=== PATIENT | female | born 1980 | race Two or more races ===

== ENCOUNTER 2024-10-08 03:50 | Emergency (ER) | payer MEDICAID ==
[~2024-10-08] VITALS: Ht 154.9 cm; Wt 74.8 kg
--- NOTE | 2024-10-08 04:21 | ED.PDOC ---
General Chief Complaint: Abdominal Pain Comments right pelvic and flank pain. pt has a history of same due to kidney stones. this time is not as intense and is on the right side, rather than left. no hematuria Time Seen by MD: 04:01 Primary Care Provider: NONE Reviewed notes: Nurses Notes, Medications, Allergies Allergies: Coded Allergies: NO KNOWN ALLERGIES (Unverified , 09/26/14) Home Meds No Active Prescriptions or Reported Meds Information Source: Patient, Relative (Child), H Medical Record, Past Medical Record, PMD Records Mode of Arrival: Ambulatory Severity: Mild Timing: Days Duration: Since onset Onset: Spontaneous Symptoms: None History of: None Location: (R) Flank associated signs and symptoms: Flank Pain Past Medical History PAST MEDICAL HISTORY: Kidney Stones Surgical History: Denies all surgeries PSYCHIATRIC THERAPIST History: No Pertinent PSYCHIATRIC THERAPIST History Family History Family History: Unknown Social History Smoker: Non-Smoker Alcohol: Denies ETOH Use Drugs: Denies Drug Use Lives In: Home Constitutional: denies: chills, diaphoresis, fatigue, fever, malaise, sweats, weakness, others EENTM: denies: blurred vision, double vision, ear bleeding, ear discharge, ear drainage, ear pain, ear ringing, eye pain, eye redness, hearing loss, mouth pain, mouth swelling, nasal discharge, nose bleeding, nose congestion, nose pain, photophobia, tearing, throat pain, throat swelling, voice changes, others Respiratory: denies: cough, hemoptysis, orthopnea, SOB at rest, shortness of breath, SOB with excertion, stridor, wheezing, others Cardiovascular: denies: chest pain, dizzy spells, diaphoresis, Dyspnea on exertion, edema, irregular heart beat, left arm pain, lightheadedness, palpitations, PND, syncope, others Gastrointestinal: reports: abdominal pain (ruq); denies: abdomen distended, blood streaked bowels, constipated, diarrhea, dysphagia, difficulty swallowing, hematemesis, melena, nausea, poor appetite, poor fluid intake, rectal bleeding, rectal pain, vomiting, others Genitourinary: reports: flank pain; denies: abnormal vagina bleeding, burning, dyspareunia, dysuria, frequency, hematuria, incontinence, pain, , vagina discharge, urgency, others Neurological: denies: dizziness, fainting, headache, left sided numbness, left sided weakness, numbness, paresthesia, pre-existing deficit, right sided numbness, right sided weakness, seizure, speech problems, tingling, tremors, weakness, others Musculoskeletal: denies: back pain, gout, joint pain, joint swelling, muscle pain, muscle stiffness, neck pain, others Integumetry: denies: bruises, change in color, change in hair/nails, dryness, laceration, lesions, lumps, rash, wounds, others Allergic/Immunocompromised: denies: Difficulty Healing, Frequent Infections, Hives, Itching, others Hematologic/Lymphatic: denies: anemia, blood clots, easy bleeding, easy bruising, swollen glands, others Endocrine: denies: excessive hunger, excessive sweating, excessive thirst, excessive urination, flushing, intolerance to cold, intolerance to heat, unexplained weight gain, unexplained weight loss, others Psychiatric: denies: anxiety, bipolar disorder, depression, hopeless, panic disorder, schizophrenia, sleepless, suicidal, others All Other Systems: Reviewed and Negative Physical Exam General Appearance: No Apparent Distress, Normal HEENT: Normal ENT Inspection, Pharynx Normal, TMs Normal Neck: Full Range of Motion, Non-Tender, Normal, Normal Inspection Respiratory: Chest Non-Tender, Lungs Clear, No Accessory Muscle Use, No Respiratory Distress, Normal Breath Sounds Cardiovascular: No Edema, No JVD, No Murmur, No Gallop, Normal Peripheral Pulses, Regular Rate/Rhythm Breast Exam: Deferred Gastrointestinal: No Organomegaly, Non Tender, No Pulsatile Mass, Normal Bowel Sounds, Soft Genitalia: Deferred Pelvic: Deferred Rectal: Deferred Extremities: No calf tenderness, Normal capillary refill, Normal inspection, Normal range of motion, Non-tender, No pedal edema Musculoskeletal : Apperance: Normal Neurologic: Alert, medical billing associate II-XII nml as Tested, No Motor Deficits, Normal Affect, Normal Mood, No Sensory Deficits Cerebellar Function: Normal Reflexes: Normal Skin: Dry, Normal Color, Warm Lymphatic: No Adenopathy Was a procedure done? Was a procedure done?: No Differential Diagnosis Kidney stone (Female): Bowel obstruction, Cholelithiasis, Ectopic , Hepatitis, Musculoskeletal pain, Pyelonephritis, Strain, Urinary obstruction, Urolithiasis, Other Kidney stone (Male): N/A Penile/Scrotal: N/A Urinary Problem (Male): N/A Urinary Problem (Female): AAA, Appendicitis, Aortic dissection, Ectopic , Impaction, Intrauterine , Pyelonephritis, Urinary retention, Urolithiasis, UTI X-Ray, Labs, Meds, VS Vital Signs Date Time Temp Pulse Resp B/P (MAP) Pulse Ox O2 Delivery O2 Flow Rate FiO2 10/08/24 05:41 97.8 54 20 131/83 (99) 99 97.8 10/08/24 04:16 98.7 63 16 150/97 (114) 97 98.7 Lab Test 10/08/24 05:08 10/08/24 04:13 Range/Units Urine Color Colorless Yellow Urine Clarity Clear Clear Urine pH 5.0 5.0-9.0 Urine Specific [place] 1.024 1.001-1.035 Urine Protein Negative Negative Urine Ketones Negative Negative Urine Blood Trace H Negative /uL Urine Nitrite Negative Negative Urine Bilirubin Negative Negative Urine Urobilinogen Normal Negative mg/dL Urine Leukocyte Esterase Negative Negative /uL Urine RBC <1 0 - 4 /hpf Urine Microscopic WBC 1 0-5 /HPF Urine Squamous Epithelial Cells Few <5 /hpf Urine Bacteria None seen None Seen /hpf Urine Mucus Few None Seen Urine Glucose Normal Normal mg/dL White Blood Count 5.1 4.4-10.8 10^3/uL Red Blood Count 5.05 4.0-5.20 10^6/uL Hemoglobin 14.7 12.2-16.2 g/dL Hematocrit 43.4 36.0-46.0 % Mean Corpuscular Volume 85.9 80.0-100.0 fL Mean Corpuscular Hemoglobin 29.1 28.0-32.0 pg Mean Corpuscular Hemoglobin Concent 33.8 32.0-36.0 g/dL Red Cell Distribution Width 13.3 11.8-14.3 % Platelet Count 305 140-450 10^3/uL Mean Platelet Volume 6.6 L 6.9-10.8 fL Neutrophils (%) (Auto) 48.4 37.0-80.0 % Lymphocytes (%) (Auto) 45.2 10.0-50.0 % Monocytes (%) (Auto) 4.8 0.0-12.0 % Eosinophils (%) (Auto) 1.3 0.0-7.0 % Basophils (%) (Auto) 0.3 0.0-2.0 % Neutrophils # (Auto) 2.5 1.6-8.6 10 ^3/uL Lymphocytes # (Auto) 2.3 0.4-5.4 10 ^3/uL Monocytes # (Auto) 0.2 0-1.3 10 ^3/uL Eosinophils # (Auto) 0.1 0-0.8 10 ^3/uL Basophils # (Auto) 0 0-0.2 10 ^3/uL Nucleated Red Blood Cells 0.2 % Sodium Level 139 136-145 mmol/L Potassium Level 3.7 3.5-5.1 mmol/L Chloride Level 107 98-107 mmol/L Carbon Dioxide Level 26 20-31 mmol/L Anion Gap 6 5-15 Blood Urea Nitrogen 19 9-23 mg/dL Creatinine 0.98 0.550-1.02 mg/dL Glomerular Filtration Rate Calc 73 >90 mL/min BUN/Creatinine Ratio 19.4 10.0-20.0 Serum Glucose 99 74-106 mg/dL Calcium Level 9.3 8.7-10.4 mg/dL Beta HCG, Quantitative 0.7 L 1.5-4.2 mIU/mL [place] [id number] Ph: [phone] DIAGNOSTIC IMAGING Diagnostic Imaging Report : [id number] Signed PATIENT: KARL PADILLA ACCT: [id number] UNIT: [id number] : 1980 LOC: ER ROOM / BED: / AGE / SEX: 44 / F ADM STATUS: REG ER SERVICE [id number] ORDERING PHYSICIAN: CHENG PEREZ MD PROCEDURE(s): ABPL - CT AB PEL WO CON-NO ORAL OR IV REASON: right flank pain ORDER NUMBER(s): [id number], ACCESSION NUMBER(s): [id number] EXAM: CT Abdomen and Pelvis Without Intravenous Contrast CLINICAL INDICATION: right flank pain TECHNIQUE: Axial computed tomography images of the abdomen and pelvis without intravenous contrast. This CT exam was performed using one or more of the following dose reduction techniques: automated exposure control, adjustment of the mA and/or kV according to patient size, and/or use of iterative reconstruction technique. CONTRAST: RADIATION DOSE: CTDIvol = 12.97 mGy, DLP = 743.46 mGy-cm COMPARISON: None FINDINGS: LUNG BASES: Unremarkable. No mass. No consolidation. ABDOMEN: LIVER: Unremarkable. GALLBLADDER AND BILE DUCTS: Cholelithiasis. No ductal dilation. PANCREAS: Unremarkable. No ductal dilation. SPLEEN: Unremarkable. No splenomegaly. ADRENALS: Unremarkable. No mass. KIDNEYS AND URETERS: Unremarkable. No stones within either kidney. No hydronephrosis. STOMACH AND BOWEL: Unremarkable. No obstruction. No mucosal thickening. PELVIS: APPENDIX: Normal appendix. BLADDER: Unremarkable. No stones. REPRODUCTIVE: Unremarkable as visualized. ABDOMEN and PELVIS: INTRAPERITONEAL SPACE: Unremarkable. No free air. No significant fluid collection. BONES/JOINTS: No acute fracture. No dislocation. SOFT TISSUES: Umbilical hernia containing fat. VASCULATURE: Unremarkable. No abdominal aortic aneurysm. LYMPH NODES: Unremarkable. No enlarged lymph nodes. OTHER FINDINGS: . . IMPRESSION: 1. Normal appendix. 2. Umbilical hernia containing fat. 3. Cholelithiasis. 4. No obstructive uropathy. ATED BY: LAYLA GUTIERREZ MD DICTATED DATE/TIME: 10/08/24457 SIGNED BY: LAYLA GUTIERREZ MD SIGNED DATE/TIME: 10/08/24457 CC: Time of 1ST Reevaluation: 04:31 Reevaluation 1ST: Unchanged Patient Education/Counseling: Diagnosis, Treatment, Prognosis, Need For Follow Up Family Education/Counseling: Diagnosis, Treatment, Prognosis, Need For Follow Up, No Family Present Comments pt has cholelithiasis, not nephrolithiasis. she is asymptomatic now. she will follow up with her doctor. i will start her on norco as needed for pain. i explained to her the need to stay on a bland diet for now Departure 1 Departure Time of Disposition: 05:55 Impression: Primary Impression: Cholelithiases Qualified Codes: K80.20 - Calculus of gallbladder without cholecystitis without obstruction Disposition: 01 HOME / SELF CARE / HOMELESS Condition: Good e-Prescriptions Hydrocodone-Acetaminophen (Hydrocodone Bitartrate/AC 5-325 mg) 1 Tab Tab 1 TAB PO Q6HPRN PRN, #14 TAB Prov: CHENG PEREZ MD 10/08/24 Discharged With: Self, Relative Critical Care Note Critical Care Time?: No Stability Stability form required: No Heart Score Heart Score: Heart Score Response (Comments) Value History N/A 0 EKG N/A 0 Age N/A 0 Risk Factors N/A 0 Troponin N/A 0 Total 0 I personally scribed for CHENG PEREZ MD ([email or web address]) on 10/08/24 at 05:09. Electronically submitted by Chano Meeks ([email or web address]). I personally scribed for CHENG PEREZ MD ([email or web address]) on 10/08/24 at 05:18. Electronically submitted by Chano Meeks ([email or web address]). CHENG PEREZ MD Oct 08, 2024 04:21
[2024-10-08 04:41] LABS: Basophils # (auto) 0 10 ^3/uL (0-0.2); Basophils % (auto) 0.3 % (0.0-2.0); Eosinophils # (auto) 0.1 10 ^3/uL (0-0.8); Eosinophils % (auto) 1.3 % (0.0-7.0); Hematocrit 43.4 % (36.0-46.0); Hemoglobin 14.7 g/dL (12.2-16.2); Lymphocytes # (auto) 2.3 10 ^3/uL (0.4-5.4); Lymphocytes % (auto) 45.2 % (10.0-50.0); Mean Corpuscular Hemoglobin 29.1 pg (28.0-32.0); Mean Corpuscular Hgb Conc. 33.8 g/dL (32.0-36.0); Mean Corpuscular Volume 85.9 fL (80.0-100.0); Monocytes # (auto) 0.2 10 ^3/uL (0-1.3); Monocytes % (auto) 4.8 % (0.0-12.0); Neutrophils # (auto) 2.5 10 ^3/uL (1.6-8.6); Neutrophils % (auto) 48.4 % (37.0-80.0); Nucleated Red Blood Cells % 0.2 %; Platelet Count (auto) 305 10^3/uL (140-450); Red Blood Cells 5.05 10^6/uL (4.0-5.20); Red Cell Distribution Width 13.3 % (11.8-14.3); White Blood Cell 5.1 10^3/uL (4.4-10.8)
[2024-10-08 04:44] LABS: Chloride 107 mmol/L (98-107); Potassium 3.7 mmol/L (3.5-5.1); Sodium 139 mmol/L (136-145)
[2024-10-08 04:45] LABS: Anion Gap 6 (5-15); Calcium 9.3 mg/dL (8.7-10.4); Carbon Dioxide 26 mmol/L (20-31)
[2024-10-08 04:50] LABS: BUN/Creatinine Ratio 19.4 (10.0-20.0); Blood Urea Nitrogen 19 mg/dL (9-23); Glucose 99 mg/dL (74-106)
--- NOTE | 2024-10-08 05:00 | DVH ---
EXAM: CT Abdomen and Pelvis Without Intravenous Contrast CLINICAL INDICATION: right flank pain TECHNIQUE: Axial computed tomography images of the abdomen and pelvis without intravenous contrast. This CT exam was performed using one or more of the following dose reduction techniques: automated exposure control, adjustment of the mA and/or kV according to patient size, and/or use of iterative r econstruction technique. CONTRAST: RADIATION DOSE: CTDIvol = 12.97 mGy, DLP = 743.46 mGy-cm COMPARISON: None FINDINGS: LUNG BASES: Unremarkable. No mass. No consolidation. ABDOMEN: LIVER: Unremarkable. GALLBLADDER AND BILE DUCTS: Cholelithiasis. No ductal dilation. PANCREAS: Unremarkable. No ductal dilation. SPLEEN: Unremarkable. No splenomegaly. ADRENALS: Unremarkable. No mass. KIDNEYS AND URETERS: Unremarkable. No stones within either kidney. No hydronephrosis. STOMACH AND BOWEL: Unremarkable. No obstruction. No mucosal thickening. PELVIS: APPENDIX: Normal appendix. BLADDER: Unremarkable. No stones. REPRODUCTIVE: Unremarkable as visualized. ABDOMEN and PELVIS: INTRAPERITONEAL SPACE: Unremarkable. No free air. No significant fluid collection. BONES/JOINTS: No acute fracture. No dislocation. SOFT TISSUES: Umbilical hernia containing fat. VASCULATURE: Unremarkable. No abdominal aortic aneurysm. LYMPH NODES: Unremarkable. No enlarged lymph nodes. OTHER FINDINGS: . . IMPRESSION: 1. Normal appendix. 2. Umbilical hernia containing fat. 3. Cholelithiasis. 4. No obstructive uropathy.
[2024-10-08 05:39] LABS: Urine Bacteria None Seen /hpf (None Seen)
[2024-10-08 05:41] VITALS: BP 131/83; PULSE 54; RESP 20; TEMP 97.8; O2SAT 99
[2024-10-08 05:48] LABS: Urine Blood TRACE /uL (Negative); Urine Clarity Clear (Clear); Urine Color Colorless (Yellow); Urine Mucus FEW (None Seen); Urine Protein, UAD Negative (Negative); Urine Specific Gravity 1.024 (1.001-1.035); Urine Squamous Epithelial Cell FEW /hpf (<5); Urine Urobilinogen Normal (Negative); Urine WBC 1 /HPF (0-5)
[2024-10-08] MEDS: SODIUM CHLORIDE 0.9% 1,000 ML IV ONE (05:55)
[2024-10-08] MEDS: KETOROLAC TROMETH 30 MG/ML 1ML VIAL IV ONE (05:55)
[2024-10-08] MEDS ORDERED: HYDR-4902 PO (05:57)
== END 2024-10-08 06:36 | disposition home or self-care (01) ==
LOC: ER 03:50
DX: K80.20 Calculus of gallbladder without cholecystitis without obstruction (principal); R10.2 Pelvic and perineal pain; Z87.442 Personal history of urinary calculi
CPT/HCPCS: 36415; 74176; 80048; 81001; 84702; 85025; 96361; 96374; 99285; J1885; J7030

== ENCOUNTER 2024-10-08 12:05 | Inpatient (IN) | payer MEDICAID ==
[~2024-10-08] VITALS: Ht 154.9 cm; Wt 77.4 kg
[~2024-10-08 12:05] MED LIST: HYDR-4902 PO
--- NOTE | 2024-10-08 12:28 | ED.PDOC ---
GI ASSESSMENT HPI Comments 44 year old female presents to the ED with a chief complaint of abdominal pain onset 6 days. Patient states she has been experiencing RUQ pain with nausea for the past 6 days, was discharged today at 05:59 from [facility] with a diagnosis of gallstones. Patient states she went to see PCP today, was sent back to ED due to pain not improving. Patient experienced 1 episode of vomiting yesterday. PMHx HTN, gallstone, kidney stone. Denies chest pain, shortness of breath, dizziness, diarrhea, constipation, fever, chills. No other symptoms or modifying factors present at this time. Chief Complaint: Abdominal Pain Time Seen by MD: 12:10 Primary Care Provider: NONE Reviewed Notes: Medications, Allergies Allergies: Coded Allergies: NO KNOWN ALLERGIES (Unverified , 09/26/14) Home Meds Active Scripts Hydrocodone-Acetaminophen (Hydrocodone Bitartrate/AC 5-325 mg) 1 Tab Tab, 1 TAB PO Q6HPRN PRN, #14 TAB Prov:CHENG PEREZ MD 10/08/24 Information Source: Patient, Relative Mode of Arrival: Ambulatory Timing: Days Duration: Since onset Prehospital treatment: None Quality: Sharp Severity: Moderate Recent: None Recent Hx of: None Pain Location: RUQ Modifying Factors: Nothing Associated sign and symptoms: Nausea, Abdominal Pain Past Medical History PAST MEDICAL HISTORY: Gallstones, HTN, Kidney Stones Surgical History: Denies all surgeries RESEARCH STAFF MEMBER History: No Pertinent RESEARCH STAFF MEMBER History Family History Family History: Unknown Social History Smoker: Non-Smoker Alcohol: Denies ETOH Use Drugs: Denies Drug Use Lives In: Home Constitutional: denies: chills, diaphoresis, fatigue, fever, malaise, sweats, weakness, others EENTM: denies: blurred vision, double vision, ear bleeding, ear discharge, ear drainage, ear pain, ear ringing, eye pain, eye redness, hearing loss, mouth pain, mouth swelling, nasal discharge, nose bleeding, nose congestion, nose pain, photophobia, tearing, throat pain, throat swelling, voice changes, others Respiratory: denies: cough, hemoptysis, orthopnea, SOB at rest, shortness of breath, SOB with excertion, stridor, wheezing, others Cardiovascular: denies: chest pain, dizzy spells, diaphoresis, Dyspnea on exertion, edema, irregular heart beat, left arm pain, lightheadedness, palpitati ons, PND, syncope, others Gastrointestinal: reports: abdominal pain (RUQ), nausea, vomiting; denies: abdomen distended, blood streaked bowels, constipated, diarrhea, dysphagia, difficulty swallowing, hematemesis, melena, poor appetite, poor fluid intake, rectal bleeding, rectal pain, others Genitourinary: denies: abnormal vagina bleeding, burning, dyspareunia, dysuria, flank pain, frequency, hematuria, incontinence, pain, , vagina discharge, urgency, others Neurological: denies: dizziness, fainting, headache, left sided numbness, left sided weakness, numbness, paresthesia, pre-existing deficit, right sided numbness, right sided weakness, seizure, speech problems, tingling, tremors, weakness, others Musculoskeletal: denies: back pain, gout, joint pain, joint swelling, muscle pain, muscle stiffness, neck pain, others Integumetry: denies: bruises, change in color, change in hair/nails, dryness, laceration, lesions, lumps, rash, wounds, others Allergic/Immunocompromised: denies: Difficulty Healing, Frequent Infections, Hives, Itching, others Hematologic/Lymphatic: denies: anemia, blood clots, easy bleeding, easy bruising, swollen glands, others Endocrine: denies: excessive hunger, excessive sweating, excessive thirst, excessive urination, flushing, intolerance to cold, intolerance to heat, unexplained weight gain, unexplained weight loss, others Psychiatric: denies: anxiety, bipolar disorder, depression, hopeless, panic disorder, schizophrenia, sleepless, suicidal, others All Other Systems: Reviewed and Negative Physical Exam General Appearance: Moderate Distress, Normal HEENT: Normal ENT Inspection, Pharynx Normal, TMs Normal Neck: Full Range of Motion, Non-Tender, Normal, Normal Inspection Respiratory: Chest Non-Tender, Lungs Clear, No Accessory Muscle Use, No Respiratory Distress, Normal Breath Sounds Cardiovascular: No Edema, No JVD, No Murmur, No Gallop, Normal Peripheral Pulses, Regular Rate/Rhythm Breast Exam: Deferred Gastrointestinal: Diffuse, No Organomegaly, No Pulsatile Mass, Normal Bowel Sounds, Soft Genitalia: Deferred Pelvic: Deferred Rectal: Deferred Extremities: No calf tenderness, Normal capillary refill, Normal inspection, Normal range of motion, Non-tender, No pedal edema Musculoskeletal : Apperance: Normal Neurologic: Alert, flight simulator teacher II-XII nml as Tested, No Motor Deficits, Normal Affect, Normal Mood, No Sensory Deficits Cerebellar Function: Normal Reflexes: Normal Skin: Dry, Normal Color, Warm Peripheral Pulses: 3+ Radial (R), 3+ Radial (L) Lymphatic: No Adenopathy Was a procedure done? Was a procedure done?: No GI differential Dx Differential Diagnosis: Constipation, Diverticular disease, Esophagitis, Gastritis/PUD, Gastroenteritis X-Ray, Labs, Meds, VS Vital Signs Date Time Temp Pulse Resp B/P (MAP) Pulse Ox O2 Delivery O2 Flow Rate FiO2 10/08/24 12:29 98.2 63 16 126/92 (103) 98 98.2 Lab Test 10/08/24 12:58 Range/Units White Blood Count 4.8 4.4-10.8 10^3/uL Red Blood Count 4.84 4.0-5.20 10^6/uL Hemoglobin 13.9 12.2-16.2 g/dL Hematocrit 41.3 36.0-46.0 % Mean Corpuscular Volume 85.3 80.0-100.0 fL Mean Corpuscular Hemoglobin 28.7 28.0-32.0 pg Mean Corpuscular Hemoglobin Concent 33.7 32.0-36.0 g/dL Red Cell Distribution Width 13.5 11.8-14.3 % Platelet Count 309 140-450 10^3/uL Mean Platelet Volume 6.6 L 6.9-10.8 fL Neutrophils (%) (Auto) 50.3 37.0-80.0 % Lymphocytes (%) (Auto) 44.0 10.0-50.0 % Monocytes (%) (Auto) 4.6 0.0-12.0 % Eosinophils (%) (Auto) 0.8 0.0-7.0 % Basophils (%) (Auto) 0.3 0.0-2.0 % Neutrophils # (Auto) 2.4 1.6-8.6 10 ^3/uL Lymphocytes # (Auto) 2.1 0.4-5.4 10 ^3/uL Monocytes # (Auto) 0.2 0-1.3 10 ^3/uL Eosinophils # (Auto) 0 0-0.8 10 ^3/uL Basophils # (Auto) 0 0-0.2 10 ^3/uL Nucleated Red Blood Cells 0.1 % Total Bilirubin 0.8 0.2-1.0 mg/dL Aspartate Amino Transferase (AST) 18 13-40 U/L Alanine Aminotransferase (ALT) 27 7-40 U/L Lipase 42 12-53 U/L Patient alert. Complaining of abdominal pain. Was seen here this morning. Vitals stable pain She was seen by primary care physician after she left the hospital here was referred the patient to the ER. Liver profile within normal limits. Lipase within limits. Ultrasound reviewed does not show any acute process. Possibly need HIDA scan. Reviewed her previous visit. Explained to the patient. Continue cardiac monitoring. [place] [id number] Ph: [phone] DIAGNOSTIC IMAGING Diagnostic Imaging Report : [id number] Signed PATIENT: KARL PADILLA ACCT: [id number] UNIT: [id number] : 1980 LOC: ER ROOM / BED: / AGE / SEX: 44 / F ADM STATUS: REG ER SERVICE 1225 ORDERING PHYSICIAN: ERNIE BILLINGSLEY MD PROCEDURE(s): GBUS - GALLBLADDER REASON: gallbladder ORDER NUMBER(s): [id number], ACCESSION NUMBER(s): [id number] INDICATION: gallbladder pain TECHNIQUE: Multiple real-time sonographic images were obtained of the right upper quadrant. COMPARISON: 10/08/2024 FINDINGS: The liver demonstrates homogenous echotexture without focal mass lesions. The liver measures 13 cm. There is no intrahepatic or extrahepatic ductal dilatation. The common duct is not well visualized due to obscuration from bowel gas. Gallstone near the gallbladder neck. The gallbladder wall measures 1 mm and is within normal limits. The right kidney measures 9.7 cm. The right kidney is normal in contour, size, and shape. The echogenicity is normal. There is no hydronephrosis. The pancreas is not well visualized due to overlying bowel gas. IMPRESSION: Cholelithiasis with a small stone visualized near the gallbladder neck. No sonographic evidence of acute cholecystitis. ATED BY: BAMBI ULLOA MD DICTATED DATE/TIME: 10/08/241312 SIGNED BY: BAMBI ULLOA MD SIGNED DATE/TIME: 10/08/241312 CC: Time of 1ST Reevaluation: 12:40 Reevaluation 1ST: Improved Patient Education/Counseling: Diagnosis, Treatment, Prognosis Family Education/Counseling: Diagnosis, Treatment, Prognosis Departure 1 Departure Time of Disposition: 13:51 Impression: Primary Impression: Gallbladder disease Disposition: ADMITTED INPATIENT Admit to: Med Surg Condition: Guarded Critical Care Note Critical Care Time?: No Stability Stability form required: No Heart Score Heart Score: Heart Score Response (Comments) Value History N/A 0 EKG N/A 0 Age N/A 0 Risk Factors N/A 0 Troponin N/A 0 Total 0 I personally scribed for ERNIE BILLINGSLEY MD ([email or web address]) on 10/08/24 at 12:28. Electronically submitted by Josy Ramirez ([email or web address]). I personally scribed for ERNIE BILLINGSLEY MD ([email or web address]) on 10/08/24 at 13:56. Electronically submitted by Josy Ramirez ([email or web address]). ERNIE BILLINGSLEY MD Oct 08, 2024 12:28
--- NOTE | 2024-10-08 13:15 | DVH ---
INDICATION: gallbladder pain TECHNIQUE: Multiple real-time sonographic images were obtained of the right upper quadrant. COMPARISON: 10/08/2024 FINDINGS: The liver demonstrates homogenous echotexture without focal mass lesions. The liver measure s 13 cm. There is no intrahepatic or extrahepatic ductal dilatation. The common duct is not well vis ualized due to obscuration from bowel gas. Gallstone near the gallbladder neck. The gallbladder wall measures 1 mm and is within normal limits. The right kidney measures 9.7 cm. The right kidney is normal in contour, size, and shape. The echoge nicity is normal. There is no hydronephrosis. The pancreas is not well visualized due to overlying bowel gas. IMPRESSION: Cholelithiasis with a small stone visualized near the gallbladder neck. No sonographic evidence of ac bang cholecystitis.
[2024-10-08 13:32] LABS: Basophils # (auto) 0 10 ^3/uL (0-0.2); Basophils % (auto) 0.3 % (0.0-2.0); Eosinophils # (auto) 0 10 ^3/uL (0-0.8); Eosinophils % (auto) 0.8 % (0.0-7.0); Hematocrit 41.3 % (36.0-46.0); Hemoglobin 13.9 g/dL (12.2-16.2); Lymphocytes # (auto) 2.1 10 ^3/uL (0.4-5.4); Mean Corpuscular Hemoglobin 28.7 pg (28.0-32.0); Mean Corpuscular Hgb Conc. 33.7 g/dL (32.0-36.0); Mean Corpuscular Volume 85.3 fL (80.0-100.0); Monocytes # (auto) 0.2 10 ^3/uL (0-1.3); Monocytes % (auto) 4.6 % (0.0-12.0); Neutrophils # (auto) 2.4 10 ^3/uL (1.6-8.6); Neutrophils % (auto) 50.3 % (37.0-80.0); Nucleated Red Blood Cells % 0.1 %; Platelet Count (auto) 309 10^3/uL (140-450); Red Blood Cells 4.84 10^6/uL (4.0-5.20); Red Cell Distribution Width 13.5 % (11.8-14.3); White Blood Cell 4.8 10^3/uL (4.4-10.8)
[2024-10-08 13:42] LABS: Bilirubin, Total 0.8 mg/dL (0.2-1.0)
[2024-10-08 15:08] LABS: Urine Bacteria FEW /hpf (None Seen); Urine Blood TRACE /uL (Negative); Urine Clarity Clear (Clear); Urine Color Light-Orange (Yellow); Urine Mucus FEW (None Seen); Urine Protein, UAD Negative (Negative); Urine Squamous Epithelial Cell FEW /hpf (<5); Urine Urobilinogen Normal (Negative); Urine WBC 1 /HPF (0-5); Urine pH 5.5 (5.0-9.0)
[2024-10-08 22:21] VITALS: BP 130/93; PULSE 70; RESP 16; TEMP 98.7; O2SAT 96
--- NOTE | 2024-10-08 22:42 | DVHHPRES ---
History of Present Illness Resident Creating Document: GUERA RUBIN RESIDENT Reason for Visit: RUQ PAIN History of Present Illness Patient is a 44 year old Taiwanese speaking only female presenting to the ED with RUQ for 6 days. According to the patient, She has been experiencing RUQ pain with associated nausea and vomited only once yesterday. Patient stated she went to see PCP today, was sent back to ED due to pain not improving. Denies trauma, chest pain, shortness of breath, dizziness, diarrhea, constipation, fever, chills. Initial lab work in the ED was unremarkable and vitals were stable as well. Gallbladder US revealed Cholelithiasis with a small stone visualized near the gallbladder neck. No sonographic evidence of acute cholecystitis. PMHx: HTN, gallstone, kidney stone Pshx: None Family history: None contributory Social history: lives at home Review of Systems Review of Systems Constitutional: Denies fever no chills no feeling of malaise, MILD DISTRESSS HEENT: Denies headache, ear pain, ear discharges, conjunctivitis, nasal discharge throat pain Cardiovascular: Denies chest pain, palpitation, orthopnea, PND, or pedal edema Respiratory: Denies shortness of breath, cough cough, sputum production, hemoptysis, GI: Abdominal pain, nausea, vomiting; diarrhea, hematemesis, hematochezia, : Denies frequency, urgency, hematuria, Endocrine: Denies unintentional weight gain or weight loss, feeling of hot flashes, [place]: Denies easy bruising, bleeding disorders, epistaxis Musculoskeletal: Denies joint pains, muscle aches Psych: No evidence of depression, merry, suicidal ideation Allergies: Coded Allergies: NO KNOWN ALLERGIES (Unverified , 09/26/14) Exam Vital Signs Vital Signs Date Time Temp Pulse Resp B/P (MAP) Pulse Ox O2 Delivery O2 Flow Rate FiO2 10/08/24 18:16 98.7 66 16 140/97 (111) 96 98.7 Exam General Appearance: Alert, Oriented X3, Cooperative, mild- moderate acute distress HEENT: Atraumatic, PERRLA, EOMI, Mucous membrane moist/pink Respiratory: Clear to auscultation, Normal air movement Cardiovascular: Regular rate, Normal S1, Normal S2, No murmurs, no chest wall tenderness Abdominal: NO distention; tenderness, bowel sounds present, no scars noted Extremities: No clubbing, No cyanosis, No edema, Normal pulses, No tenderness/swelling Skin: No rashes, No breakdown, No significant lesion Neuro: Normal gait, Normal speech, Strength at 5/5 X4 ext, Normal tone, Sensation intact, Cranial nerves 3-12 NL, Reflexes 2+ Psych/Mental Status: Mental status NL, Mood NL Labs/Xrays Labs Test 10/08/24 13:41 10/08/24 12:58 Range/Units Urine Color Light-orange Yellow Urine Clarity Clear Clear Urine pH 5.5 5.0-9.0 Urine Specific [place] 1.030 1.001-1.035 Urine Protein Negative Negative Urine Ketones Negative Negative Urine Blood Trace H Negative /uL Urine Nitrite Negative Negative Urine Bilirubin Negative Negative Urine Urobilinogen Normal Negative mg/dL Urine Leukocyte Esterase Negative Negative /uL Urine RBC 2 0 - 4 /hpf Urine Microscopic WBC 1 0-5 /HPF Urine Squamous Epithelial Cells Few <5 /hpf Urine Bacteria Few H None Seen /hpf Urine Mucus Few None Seen Urine Glucose Trace Normal mg/dL White Blood Count 4.8 4.4-10.8 10^3/uL Red Blood Count 4.84 4.0-5.20 10^6/uL Hemoglobin 13.9 12.2-16.2 g/dL Hematocrit 41.3 36.0-46.0 % Mean Corpuscular Volume 85.3 80.0-100.0 fL Mean Corpuscular Hemoglobin 28.7 28.0-32.0 pg Mean Corpuscular Hemoglobin Concent 33.7 32.0-36.0 g/dL Red Cell Distribution Width 13.5 11.8-14.3 % Platelet Count 309 140-450 10^3/uL Mean Platelet Volume 6.6 L 6.9-10.8 fL Neutrophils (%) (Auto) 50.3 37.0-80.0 % Lymphocytes (%) (Auto) 44.0 10.0-50.0 % Monocytes (%) (Auto) 4.6 0.0-12.0 % Eosinophils (%) (Auto) 0.8 0.0-7.0 % Basophils (%) (Auto) 0.3 0.0-2.0 % Neutrophils # (Auto) 2.4 1.6-8.6 10 ^3/uL Lymphocytes # (Auto) 2.1 0.4-5.4 10 ^3/uL Monocytes # (Auto) 0.2 0-1.3 10 ^3/uL Eosinophils # (Auto) 0 0-0.8 10 ^3/uL Basophils # (Auto) 0 0-0.2 10 ^3/uL Nucleated Red Blood Cells 0.1 % Total Bilirubin 0.8 0.2-1.0 mg/dL Aspartate Amino Transferase (AST) 18 13-40 U/L Alanine Aminotransferase (ALT) 27 7-40 U/L Lipase 42 12-53 U/L Assessment/Plan Assessment/Plan ASSESSMENT RUQ pain likely secondary to gallstones RULE out acute cholecystitis Gallstone near the gallbladder neck. The gallbladder wall measures 1 mm and is within normal limits on CT abdomen Hypertensive heart disease Obesity grade I, BMI: 31.2 History of Kidney stones History of Gallstones PLAN Pain management with ketorolac NPO Lactated Ringers at 100 mL/hour Ursodiol 300 mg p.o. b.i.d. Acetaminophen 650 mg q.6 PRN Continue Lisinopril home medication Surgical consult DVT prophylaxis: - Lovenox 40 mg sc daily Goal of care discussed for more than 25 minute: Full code Case and plan discussed with Dr. Meléndez Plan discussed with: Patient My Orders Orders - GUERA RUBIN RESIDENT Procedure Category Date Status Time Admit ADMIT 10/08/24 Transmitted 22:22 Code Status CODE 10/08/24 Transmitted 22:22 Vital Signs ARAVIND 10/08/24 In Process 22:22 Review Orders With ARAVIND 10/08/24 In Process Adm. 22:22 Npo (Nothing By DIET 10/09/24 Transmitted Mouth) Diet Breakfast Acetaminophen Tablet PHA 10/08/24 In Process (Tylenol Tablet) 22:30 Notify Md Of Changes ARAVIND 10/08/24 In Process From Base 22:22 Advance Directive ARAVIND 10/08/24 In Process 22:22 Patient Condition ORDERS 10/08/24 Transmitted 22:22 Allergies ARAVIND 10/08/24 In Process 22:22 Ondansetron Hcl PHA 10/08/24 In Process (Zofran) 22:30 Notify Md Of Changes ARAVIND 10/08/24 In Process From Base 22:22 Type And Screen BBK 10/08/24 Logged 22:22 PTPTT LAB 10/08/24 Logged 22:22 Hemoglobin A1c LAB 10/08/24 Logged 22:22 * Surgical Consult CONS 10/08/24 Transmitted Ketorolac Injection PHA 10/08/24 Verified (Toradol Injection) 22:45 Ketorolac Injection PHA 10/08/24 Verified (Toradol Injection) 22:45 Comprehensive LAB 10/08/24 Verified Metabolic Panel 22:31 Basic Metabolic Panel LAB 10/09/24 Verified 04:00 Complete Blood Count LAB 10/09/24 Verified 04:00 Magnesium LAB 10/08/24 Verified 22:31 Thyroid Stimulating LAB 10/08/24 Verified Hormone 22:31 Date of Service: Oct 08, 2024 Billing Provider: FÉLIX MELÉNDEZ MD Common Visit Codes: [id number] INP/OBS CARE (HIGH) GUERA RUBIN RESIDENT Oct 08, 2024 22:42 FÉLIX MELÉNDEZ MD Oct 10, 2024 14:25
[2024-10-08] MEDS ORDERED: KETOROLAC TROMETH 30 MG/ML 1ML VIAL IV PRN (22:45)
[2024-10-08] MEDS: KETOROLAC TROMETH 30 MG/ML 1ML VIAL IV ONE (22:45)
[2024-10-09] VITALS (7 sets, daily range): BP systolic 115–140; BP diastolic 60–85; PULSE 45–63; RESP 14–18; TEMP 97.6–98.1; O2SAT 95–99
[2024-10-09 00:15] LABS: INR 0.97 (0.9-1.15); Partial Thromboplastin Time 25.8 SEC (24.5-34.5); Prothrombin Time 10.3 sec (9.3-11.8)
[2024-10-09 00:24] LABS: Alanine Aminotransferase 27 U/L (7-40); Albumin 4.3 g/dL (3.2-4.8); Alkaline Phosphatase 89 U/L (46-116); Anion Gap 5 (5-15); Aspartate Aminotransferase 17 U/L (13-40); BUN/Creatinine Ratio 18.8 (10.0-20.0); Blood Urea Nitrogen 16 mg/dL (9-23); Calcium 9.3 mg/dL (8.7-10.4); Carbon Dioxide 27 mmol/L (20-31); Magnesium 2.3 mg/dL (1.6-2.6); Potassium 3.7 mmol/L (3.5-5.1); Sodium 140 mmol/L (136-145); Total Protein 6.8 g/dL (5.7-8.2)
[2024-10-09 00:25] LABS: Bilirubin, Total 0.4 mg/dL (0.2-1.0)
[2024-10-09 00:30] LABS: Chloride 108 mmol/L (98-107); Glucose 112 mg/dL (74-106)
[2024-10-09] MEDS: ENOXAPARIN SOD 40 MG/0.4 ML SYRINGE SC ONE (03:30)
[2024-10-09 05:30] LABS: Basophils # (auto) 0 10 ^3/uL (0-0.2); Basophils % (auto) 0.3 % (0.0-2.0); Eosinophils # (auto) 0.1 10 ^3/uL (0-0.8); Eosinophils % (auto) 1.3 % (0.0-7.0); Hematocrit 40.3 % (36.0-46.0); Lymphocytes % (auto) 37.5 % (10.0-50.0); Mean Corpuscular Hemoglobin 29.6 pg (28.0-32.0); Mean Corpuscular Hgb Conc. 34.7 g/dL (32.0-36.0); Mean Corpuscular Volume 85.2 fL (80.0-100.0); Monocytes # (auto) 0.3 10 ^3/uL (0-1.3); Monocytes % (auto) 5.5 % (0.0-12.0); Neutrophils % (auto) 55.4 % (37.0-80.0); Nucleated Red Blood Cells % 0.1 %; Platelet Count (auto) 293 10^3/uL (140-450); Red Blood Cells 4.73 10^6/uL (4.0-5.20); Red Cell Distribution Width 13.3 % (11.8-14.3); White Blood Cell 5.4 10^3/uL (4.4-10.8)
[2024-10-09 05:35] LABS: Calcium 9.1 mg/dL (8.7-10.4); Potassium 3.7 mmol/L (3.5-5.1); Sodium 140 mmol/L (136-145)
[2024-10-09 05:36] LABS: Anion Gap 9 (5-15); Carbon Dioxide 23 mmol/L (20-31)
[2024-10-09 05:41] LABS: BUN/Creatinine Ratio 18.7 (10.0-20.0); Blood Urea Nitrogen 14 mg/dL (9-23); Glucose 96 mg/dL (74-106)
[2024-10-09 05:43] LABS: Chloride 108 mmol/L (98-107)
[2024-10-09] MEDS: ACETAMINOPHEN 325 MG TAB PO PRN (09:33)
[2024-10-09] MEDS: LISINOPRIL 5 MG TAB PO SCH (09:33)
--- NOTE | 2024-10-09 12:54 | DVHINCON2 ---
Date of service: Oct 09, 2024 Reason for Consultation right upper quadrant, right lower quadrant pain History of Present Illness History Source: Patient, Notes HPI 44 year old female presented to the ER with ;complaint of abdominal pain for the past 7 days. patient states pain for the past 7 days in RUQ and RLQ with radiation to her back. Patient has 1 episode of vomitting yesterday , denies nause or vomiting and is hungry. past history of gallstones. Home Meds Active Scripts Hydrocodone-Acetaminophen (Hydrocodone Bitartrate/AC 5-325 mg) 1 Tab Tab, 1 TAB PO Q6HPRN PRN, #14 TAB Prov:CHENG PEREZ MD 10/08/24 Location of Abdominal Onset: RUQ, RLQ Abdominal Pain Radiation: Back Past Medical History Cardiac: No pertinent Hx Pulmonary: No pertinent Hx Central Nervous System: No pertinent Hx GI: No pertinent Hx Hemotology/Oncology: No pertinent Hx Hepatobiliary: No pertinent Hx Psychiatric: No pertinent Hx Musculoskeletal: No pertinent Hx Rheumotologic: No pertinent Hx Infectious Disease: No peritnent Hx ENT: No pertinent Hx Renal/: No pertinent Hx Endocrine: No pertinent Hx Dermatology: No pertinent Hx Past Surgical History: No pertinent Hx Patient Family History: Family history: Cardiovascular disease G8 FATHER Family history: Diabetes in G8 MOTHER Smoker: No Hx (Negative) Alocohol: None Drugs: None Lives with: With family Review of Systems Constitutional: No symptom reported Ears, Nose, & Throat: No symptom reported Eyes: No symptom reported Pulmonary/Respiratory: No symptom reported Cardiovascular: No symptom reported Gastrointestinal: Abdominal Pain Genitourinary: No symptom reported Musculoskeletal: No symptom reported Skin: No symptom reported Psychiatric: No symptom reported Endocrine: No symptom reported Hemotologic/Lymphatic: No symptom reported H&P Exam Vital Signs Vital Signs Date Time Temp Pulse Resp B/P (MAP) Pulse Ox O2 Delivery O2 Flow Rate FiO2 10/09/24 09:33 134/75 10/09/24 09:07 98.1 57 18 95 98.1 General Appeara: Well developed, Well nourished, Normal Appearance Head Exam: Normal inspection Neck Exam: Normal inspection, Non-tender Nasal Exam: Normal inspection Pulmonary/Respiratory: Normal inspection, Normal breath sounds Abdominal Exam: Normal bowel sounds, Soft Abdominal Pain Onset Location: RUQ, 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 Exam: Normal hearing, Normal speech, PERRL Neuro/Mental St: Alert, Oriented Appearance: Appropriate appearance Eye contact/ Speech: Cooperative, Good eye contact, Normal speech Skin Exam: Normal inspection, Normal color, Warm/dry Labs/Xrays Labs Test 10/09/24 04:30 10/08/24 23:46 10/08/24 13:41 10/08/24 12:58 Range/Units White Blood Count 5.4 4.4-10.8 10^3/uL Red Blood Count 4.73 4.0-5.20 10^6/uL Hemoglobin 14.0 12.2-16.2 g/dL Hematocrit 40.3 36.0-46.0 % Mean Corpuscular Volume 85.2 80.0-100.0 fL Mean Corpuscular Hemoglobin 29.6 28.0-32.0 pg Mean Corpuscular Hemoglobin Concent 34.7 32.0-36.0 g/dL Red Cell Distribution Width 13.3 11.8-14.3 % Platelet Count 293 140-450 10^3/uL Mean Platelet Volume 6.6 L 6.9-10.8 fL Neutrophils (%) (Auto) 55.4 37.0-80.0 % Lymphocytes (%) (Auto) 37.5 10.0-50.0 % Monocytes (%) (Auto) 5.5 0.0-12.0 % Eosinophils (%) (Auto) 1.3 0.0-7.0 % Basophils (%) (Auto) 0.3 0.0-2.0 % Neutrophils # (Auto) 3.0 1.6-8.6 10 ^3/uL Lymphocytes # (Auto) 2.0 0.4-5.4 10 ^3/uL Monocytes # (Auto) 0.3 0-1.3 10 ^3/uL Eosinophils # (Auto) 0.1 0-0.8 10 ^3/uL Basophils # (Auto) 0 0-0.2 10 ^3/uL Nucleated Red Blood Cells 0.1 % Sodium Level 140 136-145 mmol/L Potassium Level 3.7 3.5-5.1 mmol/L Chloride Level 108 H 98-107 mmol/L Carbon Dioxide Level 23 20-31 mmol/L Anion Gap 9 5-15 Blood Urea Nitrogen 14 9-23 mg/dL Creatinine 0.75 0.550-1.02 mg/dL Glomerular Filtration Rate Calc 100 >90 mL/min BUN/Creatinine Ratio 18.7 10.0-20.0 Serum Glucose 96 74-106 mg/dL Calcium Level 9.1 8.7-10.4 mg/dL Prothrombin Time 10.3 9.3-11.8 sec Prothrombin Time INR 0.97 0.9-1.15 Activated Partial Thromboplast Time 25.8 24.5-34.5 SEC Hemoglobin A1c 5.4 <5.7 % A1C Magnesium Level 2.3 1.6-2.6 mg/dL Total Bilirubin 0.4 0.2-1.0 mg/dL Aspartate Amino Transferase (AST) 17 13-40 U/L Alanine Aminotransferase (ALT) 27 7-40 U/L Alkaline Phosphatase 89 46-116 U/L Total Protein 6.8 5.7-8.2 g/dL Albumin 4.3 3.2-4.8 g/dL Thyroid Stimulating Hormone (TSH) 1.55 0.55-4.78 uIU/mL Urine Color Light-orange Yellow Urine Clarity Clear Clear Urine pH 5.5 5.0-9.0 Urine Specific [place] 1.030 1.001-1.035 Urine Protein Negative Negative Urine Ketones Negative Negative Urine Blood Trace H Negative /uL Urine Nitrite Negative Negative Urine Bilirubin Negative Negative Urine Urobilinogen Normal Negative mg/dL Urine Leukocyte Esterase Negative Negative /uL Urine RBC 2 0 - 4 /hpf Urine Microscopic WBC 1 0-5 /HPF Urine Squamous Epithelial Cells Few <5 /hpf Urine Bacteria Few H None Seen /hpf Urine Mucus Few None Seen Urine Glucose Trace Normal mg/dL Lipase 42 12-53 U/L Assessment/Plan Problem List: (1) Cholelithiases Plan patient complaint of right upper quadrant pain and right lower quadrant pain , states she has radiation to her back. denies nausea and vomiting. right lower quadrant very tender to palpation ,right upper quadrant not as tender WBC normal , bili normal, Ultrasound stone in gallbladder neck Plan: Ultrasound to R/O appendicitis NPO await ultrasound Dr. Bardales agrees with Plan Plan discussed with: Patient, Other (Dr. Bardales) Visit Coding Surgery Date of Service if different f: Oct 09, 2024 Billing Provider: RIZWAN BARDALES MD Surgery Visit Codes: [id number] - INP CONSULT <80 MIN DARIUS PEREZ DNP Oct 09, 2024 12:54
--- NOTE | 2024-10-09 13:43 | DVH ---
INDICATION: Pain; r/o appendicitis TECHNIQUE: Graded compression technique along with Multiple real-time sonographic images were obtain ed for evaluation of the right lower quadrant. FINDINGS: The appendix was not visualized. No free fluid or lymph nodes are seen on this exam. IMPRESSION: 1.Nonvisualization of the appendix, thus cannot exclude appendicitis.
--- NOTE | 2024-10-09 14:37 | DVHPNRES ---
Progress Note Date Seen: Oct 09, 2024 Resident Creating Document: AILYN FARRAR RESIDENT Medical Necessity Reason Pt with a Central, PICC or Fol: No Subjective Review of Systems This is a 44-year-old female with past medical history of hypertension, cholelithiasis presented to the ED with a chief complaint of right upper quadrant pain since 7 days prior to this admission. Stated that abdominal pain started 7 days ago which is mostly located in the right subcostal region, colicky in nature, 9/10, and radiate to the back and right lower quadrant and associated with nausea, 2 episodes of vomiting and chills. The patient also informed that she had an episode of biliary colic 10 years ago. The patient denies diffuse abdominal pain, dysuria, diarrhea, constipation, fever, hematemesis, hematuria, or any change in bowel and bladder habit. The patient was seen and examined on the bedside. She is alert oriented x3. Complaint of pain and tenderness in the right upper and lower quadrant. Gallbladder ultrasound revealed cholelithiasis with a stone in the gallbladder neck and no sign of acute cholecystitis. Consulted surgery for further surgical evaluation of right upper quadrant abdominal pain. Constitutional: No: Fever, Chills, Sweats, Weakness, Malaise, Other Eyes: No: Pain, Vision change, Conjunctivae inflammation, Eyelid inflammation, Other, Redness ENT: No: Ear pain, Ear discharge, Nose pain, Nose discharge, Nose congestion, Mouth pain, Mouth swelling, Throat pain, Throat swelling, Other Respiratory: Shortness of breath, improving No: Cough, Dry,Wheezing, Hemoptysis, Pleuritic Pain, Sputum, Wheezing, Other Cardiovascular: No: Chest Pain, Palpitations, Orthopnea, Paroxysmal Noc. Dyspnea, Edema, Lt Headedness, Other Gastrointestinal: Nausea, Vomiting, Abdominal Pain, No Diarrhea, Constipation, Melena, Hematochezia, Other Musculoskeletal: No: other, neck pain, shoulder pain, arm pain, back pain, hand pain, leg pain, foot pain Neurological:; No: Weakness, Numbness, Incoordination, Change in speech, Confusion, Seizures Objective vital signs Vital Sign Date Time Temp Pulse Resp B/P (MAP) Pulse Ox O2 Delivery O2 Flow Rate FiO2 10/09/24 13:00 97.6 54 18 131/82 (98) 99 97.6 Total Intake and Output 10/08/24 10/08/24 10/09/24 15:00 23:00 07:00 Intake Total 0 ml Balance 0 ml medications Current Medications Medications Dose Ordered Sig/Joselyn Route Start Time Stop Time Status Last Admin Dose Admin Acetaminophen 650 mg Q6HP PRN PO 10/08/24 22:30 10/09/24 09:33 650 MG Ondansetron HCl 4 mg Q4HP PRN IV 10/08/24 22:30 Ketorolac Tromethamine 15 mg Q6HPRN PRN IV 10/08/24 22:45 10/13/24 22:44 Lisinopril 5 mg DAILY PO 10/09/24 10:00 10/09/24 09:33 5 MG Enoxaparin Sodium 40 mg DAILY SC 10/10/24 10:00 Ursodiol 300 mg BID PO 10/09/24 10:00 Lactated Ringer's 1,000 ml @ 100 mls/hr Q10H IV 10/09/24 09:15 Examination Physical examination: General Appearance: Alert, Oriented X3, Cooperative, No acute distress HEENT: Atraumatic, PERRLA, EOMI, Mucous membrane moist/pink Respiratory: Clear to auscultation, Normal air movement Cardiovascular: Regular rate, Normal S1, Normal S2, No murmurs, no chest wall tenderness Abdominal: Tenderness in the rt upper and lower quadrant, fuentes's sign negative Normal bowel sounds, Soft, No hepatospenomegaly, No masses Extremities: No clubbing, No cyanosis, No edema, Normal pulses, No tenderness/swelling Skin: No rashes, No breakdown, No significant lesion Neuro: Normal gait, Normal speech, Strength at 5/5 X4 ext, Normal tone, Sensation intact, Cranial nerves 3-12 NL, Reflexes 2+ Psych/Mental Status: Mental status NL, Mood NL laboratory and microbiology Laboratory Tests 10/09/24 04:30 Test 10/09/24 04:30 Range/Units Serum Glucose 96 74-106 mg/dL Labs and/or images reviewed: Labs reviewed by me, Image(s) reviewed by me Problem List/Assessment/Plan Problem List/Assessment/Plan Assessment and plan: # Right upper quadrant pain and nausea likely due to cholelithiasis with impacted stone, rule out acute cholecystitis # Rule out appendicitis - Gallbladder ultrasound showed cholelithiasis with a small stone visualized near the gallbladder neck. No sonographic evidence of acute cholecystitis. - Surgery on board and recommended abdominal appendix ultrasound to rule out appendicitis and nuclear medicine HIDA scan to rule out acute cholecystitis - NPO - Lactated Ringers at 100 mL/hour - Ursodiol 300 mg p.o. b.i.d. - Acetaminophen 650 mg q.6 PRN # Hypertensive heart disease - Lisinopril 5 mg p.o. daily # DVT prophylaxis - Lovenox 40 mg sc daily Goal of Care discussed with the patient for more than 15 minutes full code Plan discussed with Dr. Ro Plan discussed with: Patient, Other My Orders My Orders Orders - AILYN FARRAR Procedure Category Date Status Time Test, Urine LAB 10/09/24 In Process 11:38 Date of Service: Oct 09, 2024 Billing Provider: JUAN ALMAZAN MD Common Visit Codes: [id number] INP/OBS CARE(HIGH) AILYN FARRAR Oct 09, 2024 14:37 JUAN ALMAZAN MD Oct 11, 2024 00:12
[2024-10-09] MEDS: LACTATED RINGER'S 1,000 ML IV SCH (19:00)
[2024-10-09] MEDS: URSODIOL 300 MG CAP PO SCH (22:00)
[2024-10-10] VITALS (8 sets, daily range): BP systolic 119–148; BP diastolic 74–86; PULSE 50–84; RESP 15–19; TEMP 97.6–97.9; O2SAT 95–100
[2024-10-10 06:41] LABS: Chloride 105 mmol/L (98-107); Potassium 3.6 mmol/L (3.5-5.1); Sodium 138 mmol/L (136-145)
[2024-10-10 06:42] LABS: Anion Gap 8 (5-15); Calcium 9.3 mg/dL (8.7-10.4); Carbon Dioxide 25 mmol/L (20-31)
[2024-10-10 06:48] LABS: BUN/Creatinine Ratio 12.5 (10.0-20.0); Blood Urea Nitrogen 10 mg/dL (9-23); Glucose 91 mg/dL (74-106)
[2024-10-10 07:14] LABS: Basophils # (auto) 0 10 ^3/uL (0-0.2); Basophils % (auto) 0.3 % (0.0-2.0); Eosinophils # (auto) 0 10 ^3/uL (0-0.8); Eosinophils % (auto) 1.1 % (0.0-7.0); Hematocrit 38.4 % (36.0-46.0); Hemoglobin 13.9 g/dL (12.2-16.2); Lymphocytes # (auto) 1.6 10 ^3/uL (0.4-5.4); Lymphocytes % (auto) 35.9 % (10.0-50.0); Mean Corpuscular Hemoglobin 30.7 pg (28.0-32.0); Mean Corpuscular Hgb Conc. 36.1 g/dL (32.0-36.0); Mean Corpuscular Volume 84.9 fL (80.0-100.0); Monocytes # (auto) 0.2 10 ^3/uL (0-1.3); Monocytes % (auto) 5.1 % (0.0-12.0); Neutrophils # (auto) 2.5 10 ^3/uL (1.6-8.6); Neutrophils % (auto) 57.6 % (37.0-80.0); Nucleated Red Blood Cells % 0.5 %; Platelet Count (auto) 290 10^3/uL (140-450); Red Blood Cells 4.52 10^6/uL (4.0-5.20); Red Cell Distribution Width 13.3 % (11.8-14.3); White Blood Cell 4.3 10^3/uL (4.4-10.8)
--- NOTE | 2024-10-10 08:11 | DVH ---
Procedure: NM NM HIDA SCAN Exam Date: 10/09/2024 03:28 PM Clinical History: r/o cystic duct obstruction Comparison Study: 10/09/2024 Nuclear Medicine Hepatobiliary Scan. Technique: Following the intravenous administration of 7.5 mCi of technetium 99m labeled Choletec multiple plana r abdominal planar images were obtained in anterior projection in 5 minute intervals for45 minutes . Right lateral images were obtained at 45 minutes after injection. Findings: The liver appears grossly normal in size. There is no abnormal persistence of the cardiac or blood po ol activity. There is prompt visualization of the gallbladder and excretion of activity into the smal l bowel. Impression: Unremarkable hepatobiliary study without evidence of acute cholecystitis.
[2024-10-10] MEDS: ceFAZolin 2 GM/D5W100ml 100 ML IV ONE (09:37)
[2024-10-10] MEDS: ENOXAPARIN SOD 40 MG/0.4 ML SYRINGE SC SCH (10:00)
[2024-10-10] MEDS ORDERED: KETAMINE 50mg/ML 1ml syringe ONE (10:13)
[2024-10-10] MEDS ORDERED: HYDROmorphone HCL 2 MG/ML VL/or syr ONE (10:13)
[2024-10-10] MEDS ORDERED: fentaNYL CITRATE 100 MCG/2 ML VL ONE (10:14)
[2024-10-10] MEDS ORDERED: MIDAZOLAM HCL 2MG/2ML 2ml VIAL (1mg/ml) ONE (10:14)
[2024-10-10] MEDS ORDERED: LIDOCAINE 1% INJ PF 5ML AMP ONE (10:14)
[2024-10-10] MEDS ORDERED: SODIUM CHLORIDE LOCK 10 ML ONE (10:14)
[2024-10-10] MEDS ORDERED: PROPOFOL 10 MG/ML 20 ML IV ONE (10:14)
[2024-10-10] MEDS ORDERED: ONDANSETRON HCL 4 MG/2 ML VIAL ONE (10:14)
[2024-10-10] MEDS ORDERED: ROCURONIUM 10MG/ML 10ML VIAL IV ONE (10:14)
[2024-10-10] MEDS ORDERED: HYDROmorphone HCL 2 MG/ML VL/or syr IV PRN ×2 (10:15→11:00)
[2024-10-10] MEDS ORDERED: MORPHINE SULFATE 4 MG/ML SYR/VIAL IV PRN (10:15)
[2024-10-10] MEDS: METOCLOPRAMIDE HCL 5MG/ml INJ 2ml VIAL IV ONE (10:15)
[2024-10-10] MEDS ORDERED: MORPHINE SULFATE INJ 2 MG/ml SYRG IV PRN ×2 (10:30→20:00)
[2024-10-10] MEDS: BUPIVACAINE HCL 0.25% P/F 10 ML VIAL ONE (10:41)
[2024-10-10] MEDS: LIDOCAINE W/ EPINEPHRINE 1% 20ML VIAL ONE (10:42)
[2024-10-10] MEDS ORDERED: SUGAMMADEX 200mg/2ml Vial (100MG/ML) IV ONE (10:50)
--- NOTE | 2024-10-10 11:18 | DVHOP ---
DATE OF SURGERY: 10/10/2024 PREOPERATIVE DIAGNOSES: Cholelithiasis, abdominal pain. SURGEON: Monty Bardales MD CONCRETE [employer] FINISHING SUPERVISOR: Jacques Pelletier. ANESTHESIA: General endotracheal. ANESTHESIOLOGIST: Dr. Ibrahim. PROCEDURES: Laparoscopy, laparoscopic cholecystectomy. DESCRIPTION OF PROCEDURE: Under general endotracheal anesthesia, with the patient's skin prepped and draped, a supraumbilical incision was made and Veress needle inserted by the hanging drop technique in order to establish pneumoperitoneum to 15 mmHg pressure by insufflation with carbon dioxide. With the abdomen fully distended, the needle was removed and replaced with a 5 mm trocar port through which a 0-degree viewing laparoscope was inserted and under direct vision, additional 5 and 10 mm ports inserted through the abdominal wall at the anterior axillary line at the level of the umbilicus and in the subxiphoid skin in the midline respectively. Laparoscopy was performed. Special attention was paid to the right lower quadrant due to the patient's atypical presentation. The tube and ovary appeared to be normal. There was a small amount of blood surrounding the right ovary. This was aspirated. There was no evidence of an ongoing cyst formation. The uterus appeared normal, with the exception of few fibroid tumors. Appendix was then inspected. It was placed on tension and traced to confluence with the cecum. The appendix appeared to be normal size and caliber and there was no evidence of inflammation of its serosal surface. Further inspection revealed a gallbladder which was distended. It was placed on tension. The cystic duct and cystic artery were identified, circumferentially dissected, skeletonized and traced into the hepatocystic triangle so as to minimize the potential for inadvertent injury to the common bile duct. Subsequently, the cystic duct and cystic artery were divided between metallic clips and the gallbladder resected from its liver bed by electrocautery and traction. The gallbladder was removed from the peritoneal cavity. The subhepatic space was profusely irrigated, irrigant was aspirated. Hemostasis was meticulously accomplished, assisted by small amount of hemostatic SNoW applied into the intrahepatic portion of the gallbladder bed. At the termination of procedure, there was no evidence of bleeding from either the cholecystectomy site or from the port sites. Instrumentation was withdrawn. Pneumoperitoneum was evacuated. Fascial defect closed using 0 Vicryl. Wounds approximated using Monocryl sutures, Dermabond glue and Steri-Strips. The patient remained stable throughout the procedure, left the operating room following an accurate needle and sponge count. The daughter was thoroughly informed at [phone]. MD EDGAR [place]/ROWAN TID: [id number] RECEIPT: [id number]
[2024-10-10] MEDS: HYDROmorphone HCL 2 MG/ML VL/or syr IV PRN (12:04)
[2024-10-10] MEDS ORDERED: HYDROmorphone HCL 2 MG/ML VL/or syr IV ONE (13:50)
[2024-10-10] MEDS: D5W/SOD CHL 0.45%/KCL 20MEQ 1,000 ML IV SCH (13:57)
--- NOTE | 2024-10-10 16:57 | DVHPNRES ---
Progress Note Date Seen: Oct 10, 2024 Resident Creating Document: AILYN FARRAR RESIDENT Medical Necessity Reason Pt with a Central, PICC or Fol: No Subjective Review of Systems The patient was seen and examined on the bedside. She is alert oriented x3. No overnight event and complaining of pain in the right upper and lower quadrant. The patient went to the OR for possible laparoscopic/open cholecystectomy and appendectomy. Objective vital signs Vital Sign Date Time Temp Pulse Resp B/P (MAP) Pulse Ox O2 Delivery O2 Flow Rate FiO2 10/10/24 12:30 54 16 129/85 (100) 98 10/10/24 11:48 Room Air 0 96 10/10/24 11:05 98.1 98.1 Total Intake and Output 10/09/24 10/09/24 10/10/24 15:00 23:00 07:00 Intake Total 0 ml Balance 0 ml medications Current Medications Medications Dose Ordered Sig/Joselyn Route Start Time Stop Time Status Last Admin Dose Admin Acetaminophen 650 mg Q6HP PRN PO 10/08/24 22:30 10/09/24 09:33 650 MG Ondansetron HCl 4 mg Q4HP PRN IV 10/08/24 22:30 Lisinopril 5 mg DAILY PO 10/09/24 10:00 10/09/24 09:33 5 MG Potassium Chloride/Dextrose/ Sod Cl 1,000 ml @ 120 mls/hr Q8H20M IV 10/10/24 11:00 10/10/24 13:57 120 MLS/HR Hydromorphone HCl 1 mg Q3HPRN PRN IV 10/10/24 11:00 Pantoprazole Sodium 40 mg DAILY IV 10/11/24 10:00 Examination Physical examination: General Appearance: Alert, Oriented X3, Cooperative, No acute distress HEENT: Atraumatic, PERRLA, EOMI, Mucous membrane moist/pink Respiratory: Clear to auscultation, Normal air movement Cardiovascular: Regular rate, Normal S1, Normal S2, No murmurs, no chest wall tenderness Abdominal: Normal bowel sounds, Soft, tenderness in the right upper and lower quadrant, No hepatospenomegaly, No masses Extremities: No clubbing, No cyanosis, No edema, Normal pulses, No tenderness/swelling Skin: No rashes, No breakdown, No significant lesion Neuro: Normal gait, Normal speech, Strength at 5/5 X4 ext, Normal tone, Sensation intact, Cranial nerves 3-12 NL, Reflexes 2+ Psych/Mental Status: Mental status NL, Mood NL laboratory and microbiology Laboratory Tests 10/10/24 05:24 Test 10/10/24 05:24 Range/Units Serum Glucose 91 74-106 mg/dL Labs and/or images reviewed: Labs reviewed by me, Image(s) reviewed by me Problem List/Assessment/Plan Problem List/Assessment/Plan Assessment and plan: # Right upper quadrant pain and nausea likely due to cholelithiasis with impacted stone, rule out acute cholecystitis # Rule out appendicitis - Gallbladder ultrasound showed cholelithiasis with a small stone visualized near the gallbladder neck. No sonographic evidence of acute cholecystitis - NM HIDA scan demonstrated Unremarkable hepatobiliary study without evidence of acute cholecystitis.. - Surgery on board - Patient underwent laparoscopic cholecystectomy, appendectomy today and the procedure was uneventful - NPO - IV 5%DA with 0.45% NS with K @100 ml/hr - IV Ancef 1 g Q 8 hours - Ursodiol 300 mg p.o. b.i.d. - IV Dilaudid 1 mg Q 3 p.r.n. # Hypertensive heart disease - Lisinopril 5 mg p.o. daily # PUD prophylaxis - Protonix 40 mg IV daily # DVT prophylaxis - Hold due to the procedure Goal of Care discussed with the patient for more than 15 minutes full code Plan discussed with Dr. Ro Plan discussed with: Patient, Other My Orders My Orders Orders - AILYN FARRAR Procedure Category Date Status Time Cefazolin Ancef PHA 10/10/24 Verified 22:00 Dietary Evaluation Review Comments: Low fat low cholesterol high fiber diet, texture as tolearted whem medically feasible. Expected Outcomes/Goals: gradual wt loss. Date of Service: Oct 10, 2024 Billing Provider: JUAN ALMAZAN MD Common Visit Codes: [id number] INP/OBS CARE(HIGH) AILYN FARRAR Oct 10, 2024 16:57 JUAN ALMAZAN MD Oct 11, 2024 00:18
[2024-10-10] MEDS: ONDANSETRON HCL 4 MG/2 ML VIAL IV PRN (17:13)
[2024-10-10] MEDS: HYDROMORPHONE HCL 1 MG/ML INJ IV PRN (17:13)
[2024-10-10] MEDS: ceFAZolin 1GM/50ML 50 ML IV SCH (21:58)
[2024-10-11] VITALS (8 sets, daily range): BP systolic 118–142; BP diastolic 69–91; PULSE 56–70; RESP 15–18; TEMP 97.5–98.3; O2SAT 96–100
[2024-10-11 06:55] LABS: Anion Gap 9 (5-15); Carbon Dioxide 22 mmol/L (20-31); Potassium 3.6 mmol/L (3.5-5.1); Sodium 138 mmol/L (136-145)
[2024-10-11 06:56] LABS: Chloride 107 mmol/L (98-107)
[2024-10-11 07:02] LABS: BUN/Creatinine Ratio 6.3 (10.0-20.0)
[2024-10-11 07:04] LABS: Bilirubin, Total 0.9 mg/dL (0.2-1.0)
[2024-10-11 07:06] LABS: Blood Urea Nitrogen 5 mg/dL (9-23); Glucose 132 mg/dL (74-106)
[2024-10-11 07:07] LABS: Basophils # (auto) 0 10 ^3/uL (0-0.2); Basophils % (auto) 0.2 % (0.0-2.0); Eosinophils # (auto) 0 10 ^3/uL (0-0.8); Eosinophils % (auto) 0.1 % (0.0-7.0); Hematocrit 38.8 % (36.0-46.0); Hemoglobin 13.8 g/dL (12.2-16.2); Lymphocytes # (auto) 1.5 10 ^3/uL (0.4-5.4); Lymphocytes % (auto) 18.5 % (10.0-50.0); Mean Corpuscular Hgb Conc. 35.5 g/dL (32.0-36.0); Mean Corpuscular Volume 84.4 fL (80.0-100.0); Monocytes # (auto) 0.4 10 ^3/uL (0-1.3); Monocytes % (auto) 4.3 % (0.0-12.0); Neutrophils # (auto) 6.3 10 ^3/uL (1.6-8.6); Neutrophils % (auto) 76.9 % (37.0-80.0); Nucleated Red Blood Cells % 0.1 %; Platelet Count (auto) 301 10^3/uL (140-450); Red Cell Distribution Width 13.2 % (11.8-14.3); White Blood Cell 8.1 10^3/uL (4.4-10.8)
[2024-10-11] MEDS: PANTOPRAZOLE 40 MG/10 ML VIAL INJ IV SCH (09:06)
[2024-10-11 09:11] LABS: Hepatitis B Surface Antigen Negative (Negative); Hepatitis C Antibody Negative (Negative)
--- NOTE | 2024-10-11 11:08 | DVHPN2 ---
Progress Note Date Seen: Oct 11, 2024 Medical Necessity Reason Pt with a Central, PICC or Fol: No Objective vital signs Vital Sign Date Time Temp Pulse Resp B/P (MAP) Pulse Ox O2 Delivery O2 Flow Rate FiO2 10/11/24 09:06 142/81 10/11/24 09:00 98.3 60 16 97 98.3 10/11/24 08:00 Room Air* 0 21 Total Intake and Output 10/10/24 10/10/24 10/11/24 15:00 23:00 07:00 Intake Total 100 ml 270 ml 1250 ml Balance 100 ml 270 ml 1250 ml medications Current Medications Medications Dose Ordered Sig/Joselyn Route Start Time Stop Time Status Last Admin Dose Admin Acetaminophen 650 mg Q6HP PRN PO 10/08/24 22:30 10/09/24 09:33 650 MG Ondansetron HCl 4 mg Q4HP PRN IV 10/08/24 22:30 10/10/24 17:13 4 MG Lisinopril 5 mg DAILY PO 10/09/24 10:00 10/11/24 09:06 5 MG Potassium Chloride/Dextrose/ Sod Cl 1,000 ml @ 120 mls/hr Q8H20M IV 10/10/24 11:00 10/11/24 09:06 120 MLS/HR Pantoprazole Sodium 40 mg DAILY IV 10/11/24 10:00 10/11/24 09:06 40 MG Cefazolin Sodium 50 ml @ 100 mls/hr Q8HR IV 10/10/24 22:00 10/11/24 05:30 100 MLS/HR Morphine Sulfate 2 mg Q6HPRN PRN IV 10/10/24 20:00 laboratory and microbiology Laboratory Tests 10/11/24 06:14 Test 10/11/24 06:14 Range/Units Serum Glucose 132 H 74-106 mg/dL Problem List/Assessment/Plan Problem List/Assessment/Plan 10/11/24 afebrile, normotensive, labs OK, abdomen appropriately tender, wounds clean and well approximated, tolerated po, she is cleared for discharge to return to see me in two weeks, may shower after72 hours Plan discussed with: Patient Dietary Evaluation Review Comments: Low fat low cholesterol high fiber diet, texture as tolearted whem medically feasible. Expected Outcomes/Goals: gradual wt loss. RIZWAN LUIS MD Oct 11, 2024 11:08
--- NOTE | 2024-10-11 13:52 | DVHPNRES ---
Progress Note Date Seen: Oct 11, 2024 Resident Creating Document: AILYN FARRAR RESIDENT Medical Necessity Reason Pt with a Central, PICC or Fol: No Subjective Review of Systems Patient is seen and examined on the bedside. She is alert oriented x3. Day 1 Status post laparoscopic cholecystectomy , patient is tolerating clear liquid diet, passing flatus and bowel sounds present. Abdomen is soft and mildly tender. Objective vital signs Vital Sign Date Time Temp Pulse Resp B/P (MAP) Pulse Ox O2 Delivery O2 Flow Rate FiO2 10/11/24 12:53 98.0 70 16 124/91 (102) 97 98.0 10/11/24 08:00 Room Air* 0 21 Total Intake and Output 10/10/24 10/10/24 10/11/24 14:59 22:59 06:59 Intake Total 100 ml 270 ml 1250 ml Balance 100 ml 270 ml 1250 ml medications Current Medications Medications Dose Ordered Sig/Joselyn Route Start Time Stop Time Status Last Admin Dose Admin Acetaminophen 650 mg Q6HP PRN PO 10/08/24 22:30 10/09/24 09:33 650 MG Ondansetron HCl 4 mg Q4HP PRN IV 10/08/24 22:30 10/10/24 17:13 4 MG Lisinopril 5 mg DAILY PO 10/09/24 10:00 10/11/24 09:06 5 MG Potassium Chloride/Dextrose/ Sod Cl 1,000 ml @ 120 mls/hr Q8H20M IV 10/10/24 11:00 10/11/24 09:06 120 MLS/HR Pantoprazole Sodium 40 mg DAILY IV 10/11/24 10:00 10/11/24 09:06 40 MG Cefazolin Sodium 50 ml @ 100 mls/hr Q8HR IV 10/10/24 22:00 10/11/24 05:30 100 MLS/HR Morphine Sulfate 2 mg Q6HPRN PRN IV 10/10/24 20:00 Examination Physical examination: General Appearance: Alert, Oriented X3, Cooperative, No acute distress HEENT: Atraumatic, PERRLA, EOMI, Mucous membrane moist/pink Respiratory: Clear to auscultation, Normal air movement Cardiovascular: Regular rate, Normal S1, Normal S2, No murmurs, no chest wall tenderness Abdominal: Normal bowel sounds, Soft, mild tenderness around the incision , No hepatospenomegaly, No masses Extremities: No clubbing, No cyanosis, No edema, Normal pulses, No tenderness/swelling Skin: No rashes, No breakdown, No significant lesion Neuro: Normal gait, Normal speech, Strength at 5/5 X4 ext, Normal tone, Sensation intact, Cranial nerves 3-12 NL, Reflexes 2+ Psych/Mental Status: Mental status NL, Mood NL laboratory and microbiology Laboratory Tests 10/11/24 06:14 Test 10/11/24 06:14 Range/Units Serum Glucose 132 H 74-106 mg/dL Labs and/or images reviewed: Labs reviewed by me, Image(s) reviewed by me Problem List/Assessment/Plan Problem List/Assessment/Plan Assessment and plan: # Right upper quadrant pain and nausea likely due to cholelithiasis with impacted stone, S/P laparoscopic cholecystectomy day 1 # Rule out appendicitis - Gallbladder ultrasound showed cholelithiasis with a small stone visualized near the gallbladder neck. No sonographic evidence of acute cholecystitis - NM HIDA scan demonstrated Unremarkable hepatobiliary study without evidence of acute cholecystitis.. - Surgery on board - Clear liquid diet - IV 5%DA with 0.45% NS with K @100 ml/hr - IV Ancef 1 g Q 8 hours - Ursodiol 300 mg p.o. b.i.d. - IV Morphine 2 mg Q 6 p.r.n. # Hypertensive heart disease - Lisinopril 5 mg p.o. daily # PUD prophylaxis - Protonix 40 mg IV daily # DVT prophylaxis - Hold due to the procedure Goal of Care discussed with the patient for more than 15 minutes full code Plan discussed with Dr. Ro Plan discussed with: Patient, Other My Orders My Orders Orders - AILYN FARRAR Procedure Category Date Status Time Cefazolin 1gm/50ml PHA 10/10/24 In Process (Ancef) 22:00 Morphine Sulfate PHA 10/10/24 In Process Injection 20:00 Dietary Evaluation Review Comments: Low fat low cholesterol high fiber diet, texture as tolearted whem medically feasible. Expected Outcomes/Goals: gradual wt loss. Date of Service: Oct 11, 2024 Billing Provider: JUAN ALMAZAN MD Common Visit Codes: [id number] INP/OBS CARE(HIGH) AILYN FARRAR RESIDENT Oct 11, 2024 13:52 JUAN ALMAZAN MD Oct 14, 2024 22:28
[2024-10-12] VITALS (7 sets, daily range): BP systolic 127–145; BP diastolic 72–85; PULSE 53–69; RESP 17–18; TEMP 97.6–98.3; O2SAT 95–98
[2024-10-12] MEDS ORDERED: HYDR-4902 PO (15:58)
[2024-10-12] MEDS ORDERED: NALO4SPR2 (15:58)
--- NOTE | 2024-10-12 16:02 | DVHDS2 ---
Discharge Summary Date of Admission Oct 08, 2024 at 22:22 Date of Discharge: Oct 12, 2024 Labs/Diagnostic Data: Laboratory Results Test 10/11/24 06:14 10/09/24 13:07 10/09/24 12:46 10/08/24 23:46 White Blood Count 8.1 10^3/uL (4.4-10.8) Red Blood Count 4.60 10^6/uL (4.0-5.20) Hemoglobin 13.8 g/dL (12.2-16.2) Hematocrit 38.8 % (36.0-46.0) Mean Corpuscular Volume 84.4 fL (80.0-100.0) Mean Corpuscular Hemoglobin 30.0 pg (28.0-32.0) Mean Corpuscular Hemoglobin Concent 35.5 g/dL (32.0-36.0) Red Cell Distribution Width 13.2 % (11.8-14.3) Platelet Count 301 10^3/uL (140-450) Mean Platelet Volume 6.4 fL (6.9-10.8) Neutrophils (%) (Auto) 76.9 % (37.0-80.0) Lymphocytes (%) (Auto) 18.5 % (10.0-50.0) Monocytes (%) (Auto) 4.3 % (0.0-12.0) Eosinophils (%) (Auto) 0.1 % (0.0-7.0) Basophils (%) (Auto) 0.2 % (0.0-2.0) Neutrophils # (Auto) 6.3 10 ^3/uL (1.6-8.6) Lymphocytes # (Auto) 1.5 10 ^3/uL (0.4-5.4) Monocytes # (Auto) 0.4 10 ^3/uL (0-1.3) Eosinophils # (Auto) 0 10 ^3/uL (0-0.8) Basophils # (Auto) 0 10 ^3/uL (0-0.2) Nucleated Red Blood Cells 0.1 % Sodium Level 138 mmol/L (136-145) Potassium Level 3.6 mmol/L (3.5-5.1) Chloride Level 107 mmol/L (98-107) Carbon Dioxide Level 22 mmol/L (20-31) Anion Gap 9 (5-15) Blood Urea Nitrogen 5 mg/dL (9-23) Creatinine 0.80 mg/dL (0.550-1.02) Glomerular Filtration Rate Calc 93 mL/min (>90) BUN/Creatinine Ratio 6.3 (10.0-20.0) Serum Glucose 132 mg/dL (74-106) Calcium Level 9.0 mg/dL (8.7-10.4) Total Bilirubin 0.9 mg/dL (0.2-1.0) Lactic Acid Level 1.1 mmol/L (0.4-2.0) Urine Test Negative (Negative) Prothrombin Time 10.3 sec (9.3-11.8) Prothrombin Time INR 0.97 (0.9-1.15) Activated Partial Thromboplast Time 25.8 SEC (24.5-34.5) Hemoglobin A1c 5.4 % A1C (<5.7) Magnesium Level 2.3 mg/dL (1.6-2.6) Aspartate Amino Transferase (AST) 17 U/L (13-40) Alanine Aminotransferase (ALT) 27 U/L (7-40) Alkaline Phosphatase 89 U/L (46-116) Total Protein 6.8 g/dL (5.7-8.2) Albumin 4.3 g/dL (3.2-4.8) Thyroid Stimulating Hormone (TSH) 1.55 uIU/mL (0.55-4.78) Hepatitis B Surface Antigen Negative (Negative) Hepatitis C Antibody Negative (Negative) Test 10/08/24 13:41 10/08/24 12:58 Urine Color Light-orange (Yellow) Urine Clarity Clear (Clear) Urine pH 5.5 (5.0-9.0) Urine Specific [place] 1.030 (1.001-1.035) Urine Protein Negative (Negative) Urine Ketones Negative (Negative) Urine Blood Trace /uL (Negative) Urine Nitrite Negative (Negative) Urine Bilirubin Negative (Negative) Urine Urobilinogen Normal mg/dL (Negative) Urine Leukocyte Esterase Negative /uL (Negative) Urine RBC 2 /hpf (0 - 4) Urine Microscopic WBC 1 /HPF (0-5) Urine Squamous Epithelial Cells Few /hpf (<5) Urine Bacteria Few /hpf (None Seen) Urine Mucus Few (None Seen) Urine Glucose Trace mg/dL (Normal) Lipase 42 U/L (12-53) Other Laboratory Tests 10/11/24 06:14 Brief Hx & Hospital Course: 44-year-old female who initially presented to the hospital with a right upper quadrant pain found to have acute cholecystitis. Patient underwent general surgery intervention in which laparoscopic cholecystectomy was done. Patient is currently stable to be discharged as tolerating diet. Patient has requested [place] for home patient will be prescribed. Patient needs to follow up with the General surgery in 1-2 weeks. Condition at Discharge: Stable Final Diagnosis/Problems List Acute cholecystitis status post laparoscopic cholecystectomy Morbid obesity class I, diet weight reduction and exercise counseling Discharge Disposition: Home SNF Discharge Will this Physician continue t: No Discharge Instruct/Medications Diet: Cardiac 2g Na,low cholest Activity: See Comment Activity comment: No driving, no playing on heavy machinery, no signing legal documents while on [place]. Follow Up/Referral: Follow up with Dr. Monty walton in one week Medications: [place], Narcan as prescribed Discharge Statement: "Patient was advised to return to the ER or call 911 if any headaches, dizziness, shortness of breath, chest pain, abdominal pain, bleeding, fevers, or worsening of medical condition. Patient was counseled about treatment plan, medications, possible side effects, patientverbalized understanding. All questions were answered to the best of my ability. This discharge took greater then 30 minutes in planning, reviewing documentation, counseling the patient, and discussing with other team members." ASSESSMENT ASSESSMENT Assessment Acute cholecystitis status post laparoscopic cholecystectomy Morbid obesity class I, diet weight reduction and exercise counseling Date of Service: Oct 12, 2024 Billing Provider: AMY HALE MD Common Visit Codes: [id number] DISCH DAY >30min AMY HALE MD Oct 12, 2024 16:02
== END 2024-10-12 17:00 | disposition home or self-care (01) | DRG 263 ==
LOC: ER 12:05 → OVERFLOW 22:22 → CENTRAL 10-09 18:10
PROVIDERS: ADMIT Internal Medicine; ATTEND Internal Medicine
PROC: 0FT44ZZ Resection of Gallbladder, Percutaneous Endoscopic Approach (ICD-10-PCS; principal; 2024-10-10 10:13)
DX: K80.00 Calculus of gallbladder with acute cholecystitis without obstruction (principal); D25.9 Leiomyoma of uterus, unspecified; I10 Essential (primary) hypertension; E66.811 Obesity, class 1; E66.01 Morbid (severe) obesity due to excess calories; Z68.31 Body mass index [BMI] 31.0-31.9, adult; Z83.3 Family history of diabetes mellitus; Z82.49 Family history of ischemic heart disease and other diseases of the circulatory system; Z87.442 Personal history of urinary calculi
CPT/HCPCS: 36415; 76705; 78226; 80048; 80053; 81001; 81025; 82247; 83036; 83605; 83690; 83735; 84443; 84450; 84460; 85025; 85610; 85730; 86803; 86850; 86900; 86901; 87340; G0378; J0330; J2250; J2405; J2470; J2704; J3490